=== PATIENT | male | born 1935 | race Caucasian/White ===

== ENCOUNTER 2016-10-01 10:52 | Emergency (ER) | payer MEDICARE, OTHER | END 2016-10-01 12:15 | disposition home or self-care (01) | LOC: D.ER 10:52 | DX: M10.071 Idiopathic gout, right ankle and foot (principal); I10 Essential (primary) hypertension; E78.5 Hyperlipidemia, unspecified ==

== ENCOUNTER → 2018-04-18 12:07 | Outpatient (CLI) | payer MEDICARE, OTHER | END | disposition home or self-care (01) | LOC: D.LABREF 12:07 | DX: R31.9 Hematuria, unspecified (principal) ==

== ENCOUNTER → 2018-04-24 08:48 | Outpatient (CLI) | payer MEDICARE, OTHER ==
[~2018-04-24 08:48] MED LIST: AVAPRO150 MG PO; CRESTOR10 MG PO; METOPROLOL TART25 MG PO
[2018-04-30 06:43] VITALS: BMI 28.5
== END | disposition home or self-care (01) ==
LOC: D.CT 08:48
DX: R31.21 Asymptomatic microscopic hematuria (principal)

== ENCOUNTER 2018-04-30 05:42 | Day surgery (SDC) | payer MEDICARE, OTHER ==
[~2018-04-30] VITALS: Ht 182.9 cm; Wt 95.3 kg
[2018-04-30 06:09] LABS: BASOPHILS 0.5 % (0-2); EOSINOPHILS 3.3 % (0-7); HEMATOCRIT 42.1 % (42.0-54.0); HEMOGLOBIN 14.1 g/dL (13.5-17.5); IMMATURE GRANULOCYTES 0.1 % (0-5); LYMPHOCYTES 32.1 % (15-50); MCH 31.3 pg (26.0-34.0); MCHC 33.5 g/dL (31.0-37.0); MCV 93.3 fL (80.0-100.0); MEAN PLATELET VOLUME 11.2 fL (7.4-10.4); MONOCYTES 10.8 % (2-11); NEUTROPHILS 53.2 % (40-80); PLATELET COUNT 171 10x3/uL (130-400); RBC 4.51 10x6/uL (4.20-6.10); RDW 13.2 % (11.5-14.5); WBC 8.2 10x3/uL (4.8-10.8)
[2018-04-30 06:16] LABS: ANION GAP 14.3 mmol/L (8-16); CALCIUM 9.1 mg/dL (8.5-10.1); CARBON DIOXIDE 27.6 mmol/L (21.0-32.0); CREATININE - SERUM 1.1 mg/dL (0.6-1.3); POTASSIUM - SERUM 3.9 mmol/L (3.5-5.1)
[2018-04-30 06:43] VITALS: BP 138/66; Ht 182.9 cm; Wt 95.3 kg
--- NOTE | 2018-04-30 10:33 | OP ---
PATIENT NAME: MICHAEL DISLA MEDICAL RECORD: [id number] :35 LOCATION:[facility] ADMISSION DATE: SURGEON: SARATH FLOYD MD DATE OF OPERATION: 04/30/2018 SURGEON: Sarath Floyd MD ANESTHESIA: General anesthesia by JANICE Holman CRNA DIAGNOSES: Microscopic hematuria and obstructive benign prostatic hypertrophy. PROCEDURE: Cystoscopy. FINDINGS: Obstructive bilateral lateral lobes of the prostate, vascular prostatic urethra. No significant median lobe. Single ureteral orifices bilaterally, with no bladder tumors seen. Moderately trabeculated bladder. BLOOD LOSS: Minimal to none. CLINICAL HISTORY: This is an 83-year-old male, who was referred for microscopic hematuria noted on an annual physical in March of 2018. His creatinine is normal. His PSA is 2.86 and the urinalysis shows trace blood to be positive. He has CT scan of the abdomen and pelvis, which showed just gallstones. No renal tumors, renal stones or hydronephrosis was seen. An enlarged prostate was also noted on the CT scan. Urine cytology, I do not see a result. He comes today to have cystoscopy performed to complete his hematuria workup. He does not have any drug allergies. He also denies any difficulty voiding. He has nocturia times 1 to 2. He was given Ancef ultrasonographer to the OR. DESCRIPTION OF PROCEDURE: The patient was given induction of general anesthesia. He was then placed in dorsal lithotomy position and prepped and draped. A 17-Frisian cystoscope with 30-degree lens was used for visualization. Findings are as outlined above. The bladder was then emptied through the cystoscope sheath and the scope was removed. The patient was brought to the recovery room after he was awakened and I will see him in followup on a p.r.n. basis. TRANSINT:[id number] Voice Confirmation ID: [id number] DOCUMENT ID: [id number] SARATH FLOYD MD at 1033 CC: [id number] DICTATION DATE: 04/30/18930 TOASTER OPERATOR: 04/30/1849 [facility] [address] [place] [address]
--- NOTE | 2018-04-30 12:33 | NUR ---
1055 DRESSED, AWAKE & ALERT. D/C INFORMATION: MED REC, [facility] D/C INSTRUCTIONS, PRN FOLLOWUP/DR. FLOYD, POST CYSTOSCOPY D/C INSTRUCTIONS REVIEWED WITH PATIENT. PT VOICED UNDERSTANDING. TO PRIVATE CAR PER WHEELCHAIR BY VOLUNTEER. HOME WITH MRS. DISLA. Go WALTERS R.N.
== END 2018-04-30 10:55 | disposition home or self-care (01) ==
LOC: D.OPS 05:42 → D.PAN 08:15 → D.OPS 08:45
PROVIDERS: Anesthesiology
DX: R31.29 Other microscopic hematuria (principal); N40.1 Benign prostatic hyperplasia with lower urinary tract symptoms; N13.8 Other obstructive and reflux uropathy; N32.89 Other specified disorders of bladder; Z01.812 Encounter for preprocedural laboratory examination

== ENCOUNTER 2018-11-20 11:42 | Inpatient (IN) | payer MEDICARE, OTHER ==
[~2018-11-20] VITALS: Ht 182.9 cm; Wt 98.0 kg
[2018-11-20] MEDS ORDERED: LIPITOR20 MG PO (11:47)
[2018-11-20] MEDS ORDERED: CO Q-10200 MG PO (11:48)
[2018-11-20] MEDS ORDERED: OMNICEF300 MG PO (11:49)
[2018-11-20 12:17] LABS: BASOPHILS 0.4 % (0-2); EOSINOPHILS 5.5 % (0-7); HEMATOCRIT 36.8 % (42.0-54.0); HEMOGLOBIN 12.7 g/dL (13.5-17.5); IMMATURE GRANULOCYTES 0.2 % (0-5); LYMPHOCYTES 17.3 % (15-50); MCH 31.5 pg (26.0-34.0); MCHC 34.5 g/dL (31.0-37.0); MCV 91.3 fL (80.0-100.0); MEAN PLATELET VOLUME 10.2 fL (7.4-10.4); MONOCYTES 11.1 % (2-11); NEUTROPHILS 65.5 % (40-80); PLATELET COUNT 169 10x3/uL (130-400); RBC 4.03 10x6/uL (4.20-6.10); RDW 13.7 % (11.5-14.5); WBC 8.1 10x3/uL (4.8-10.8)
[2018-11-20 12:34] LABS: ALBUMIN 3.4 g/dL (3.4-5.0); ANION GAP 13.8 mmol/L (8-16); BILIRUBIN - TOTAL 0.61 mg/dL (0.2-1.3); CARBON DIOXIDE 26.8 mmol/L (21.0-32.0); CREATININE - SERUM 1.1 mg/dL (0.6-1.3); POTASSIUM - SERUM 3.6 mmol/L (3.5-5.1)
[2018-11-20 13:35] VITALS: BP 155/69
--- NOTE | 2018-11-20 13:58 | NUR ---
PT LYING IN BED RESTING NO DISTRESS NOTED. DENIES NEEDS AT THIS TIME.
[2018-11-20 14:47] VITALS: BP 137/85
--- NOTE | 2018-11-20 14:51 | NUR ---
REPORT CALLED TO JAIME HUNT BY SBAR FORMAT
--- NOTE | 2018-11-20 14:55 | NUR ---
TRANSPORTED TO ROOM #2138 VIA W/C, CONDITION STABLE
--- NOTE | 2018-11-20 15:53 | NUR ---
RECEIVED PT FROM ER. PT IS AAO AND UP AD CESILIA. RR EVEN AND UNLABORED ON RA. R.AC PIV IS SALINE LOCKED. QUICKSTART, HISTORY, AND MED REQ COMPLETE. PT DENIES ANY NEEDS. NO S/S OF DISTRESS NOTED.
[2018-11-20 16:15] VITALS: BP 160/66
--- NOTE | 2018-11-20 16:41 | NUR ---
PT CURRENTLY LYING SEMI FOWLERS. CALL LIGHT W/I REACH. AT BEDSIDE. PT DENIES ANY NEEDS. NO S/S OF DISTRESS NOTED. WILL CTM.
[2018-11-20 17:19] VITALS: BP 160/66; Ht 182.9 cm; Wt 98.0 kg
--- NOTE | 2018-11-20 19:00 | NUR ---
PATIENT WALKING AROUND ROOM. PATIENT ASKED ABOUT HOME MEDICATIONS BEING RESTARTED. PATIENT ADVISED ADRIÁN GRAJEDA WOULD BE CALLED TO RESTART HOME MEDICATIONS.
[2018-11-20 20:00] VITALS: BP 145/66
--- NOTE | 2018-11-20 20:57 | NUR ---
PATIENT WALKING AROUND ROOM. PATIENT ASKED FOR BREATHING TREATMENT. PATIENT ADVISED HE DOES NOT HAVE ANY ORDERED AT THIS TIME. ADRIÁN GRAJEDA NOTIFIED. NEW ORDERS RECIEVED. PATIENT NOTIFIED OF NEW ORDERS.
[2018-11-21 00:30] VITALS: BP 151/77
[2018-11-21 04:00] VITALS: BP 139/55
[2018-11-21 06:15] LABS: BASOPHILS 0.4 % (0-2); EOSINOPHILS 5.7 % (0-7); HEMOGLOBIN 11.3 g/dL (13.5-17.5); IMMATURE GRANULOCYTES 0.1 % (0-5); LYMPHOCYTES 23.4 % (15-50); MCH 30.5 pg (26.0-34.0); MCHC 33.2 g/dL (31.0-37.0); MCV 91.9 fL (80.0-100.0); MEAN PLATELET VOLUME 10.5 fL (7.4-10.4); MONOCYTES 14.4 % (2-11); PLATELET COUNT 157 10x3/uL (130-400); RDW 13.8 % (11.5-14.5)
[2018-11-21 06:39] LABS: % SATURATION 20 % (15-55); IRON 49 ug/dl (35-150); TOTAL IRON BIND CAPACITY 245 ug/dl (260-445); UNSAT IRON BIND CAPACITY 196 ug/dl (150-375)
[2018-11-21 06:59] LABS: ANION GAP 11.2 mmol/L (8-16); CALCIUM 8.6 mg/dL (8.5-10.1); CARBON DIOXIDE 29.5 mmol/L (21.0-32.0); CREATININE - SERUM 1.1 mg/dL (0.6-1.3); MAGNESIUM - SERUM 1.7 mg/dL (1.8-2.4); POTASSIUM - SERUM 3.7 mmol/L (3.5-5.1)
--- NOTE | 2018-11-21 07:32 | NUR ---
REPORT RECEIVED. WILL CONTINUE WITH POC.PT CURRENTLY UP AND BRUSHING TEETH. PT IS AAO AND UP AD CESILIA. RR EVEN AND UNLABORED ON RA. R.AC PIV IS SALINE LOCKED. PT DENIES ANY NEEDS. NO S/S OF DISTRESS NOTED. WILL CTM.
[2018-11-21 08:57] VITALS: BP 143/69
[2018-11-21 13:07] VITALS: BP 144/70
[2018-11-21 16:37] VITALS: BP 138/62
[2018-11-21 20:00] VITALS: BP 146/64
--- NOTE | 2018-11-21 20:00 | NUR ---
REPORT RECEIVED, WILL CONTINUE POC. PATIENT IS AAOX4 UP AD CESILIA. HE JUST WALKED BACK INTO THE ROOM. RR EVEN AND UNLABORED, NO S/SX OF DISTRESS NOTED. PATIENT HAS RT FA, SL, PATENT, DRSG C/D/I. PATIENT IS ON ROOM AIR. PATIENT STATED HE HAS TAKEN HIS LOPRESSOR ALREADY FROM HIS HOME MEDS, DOCUMENTED IN EMAR. PATIENT DENIES FURTHER NEEDS AT THIS TIME. CL IN REACH, BED LOCKED AND LOWERED. WILL CTM.
[2018-11-22] VITALS: BP 139/67
[2018-11-22 04:30] VITALS: BP 147/65
[2018-11-22 05:58] LABS: BASOPHILS 0.4 % (0-2); EOSINOPHILS 6.7 % (0-7); HEMATOCRIT 38.8 % (42.0-54.0); IMMATURE GRANULOCYTES 0.4 % (0-5); LYMPHOCYTES 28.6 % (15-50); MCHC 33.5 g/dL (31.0-37.0); MCV 92.6 fL (80.0-100.0); MEAN PLATELET VOLUME 10.6 fL (7.4-10.4); MONOCYTES 12.4 % (2-11); NEUTROPHILS 51.5 % (40-80); RBC 4.19 10x6/uL (4.20-6.10); RDW 13.8 % (11.5-14.5)
[2018-11-22 05:59] LABS: PLATELET COUNT 192 10x3/uL (130-400); WBC 9.3 10x3/uL (4.8-10.8)
[2018-11-22 06:11] LABS: ANION GAP 11.8 mmol/L (8-16); CALCIUM 9.4 mg/dL (8.5-10.1); CARBON DIOXIDE 28.6 mmol/L (21.0-32.0); CREATININE - SERUM 1.2 mg/dL (0.6-1.3); MAGNESIUM - SERUM 1.9 mg/dL (1.8-2.4)
[2018-11-22 06:20] LABS: POTASSIUM - SERUM 4.4 mmol/L (3.5-5.1)
--- NOTE | 2018-11-22 07:04 | MORECARE ---
CASE MANAGEMENT DISCHARGE SUMMARY PATIENT: MICHAEL DISLA UNIT: [id number] ADM DATE: 11/20/18 AGE: 83 : 35 SEX: M ROOM/BED: D.9401 AUTHOR: IVAN,DOC PHYSICIAN: REFERRING PHYSICIAN: DAVID FAM MD DATE OF SERVICE: 11/22/18 Discharge Plan Patient Name: MICHAEL DISLA Facility: [facility]:[place] : 1935 Planned Disposition: Home Anticipated Discharge Date: Discharge Date: Expected LOS: Initial Reviewer: [email or web address] Initial Review Date: 11/22/2018 Generated: 11/22/18 8:03 am Comments DCP- Discharge Planning Updated by [email or web address]: Huy De La O on 11/22/18 6:[address] Patient Name: MICHAEL DISLA Admission Status: ER Accout number: [id number] Admission Date: 11-20-2018 : 1935 Admission Diagnosis: Attending: DAVID FAM Current LOS: 2 Anticipated DC Date: Planned Disposition: Home Primary Insurance: MEDICARE A & B Discharge Planning Comments: CM MET WITH PT IN ROOM TO DISCUSS DISCHARGE PLANNING AND NEEDS. PT REPORTS LIVING AT HOME INDEPENDENTLY WITH HIS SPOUSE. PT HAS NO MEDICAL EQUIPMENT AND NO OUTSIDE SERVICES ASSISTING IN THE HOME. CM DISCUSSED AVAILABILITY OF HOME HEALTH, REHAB SERVICES AND MEDICAL EQUIPMENT. PT DENIES DISCHARGE NEEDS, REPORTS HIS WILL PICK HIM UP FOR DISCHARGE HOME. PT PLANS TO DISCHARGE HOME WITH SPOUSE, HAS NO ANTICIPATED NEEDS. FAMILY TO TRANSPORT HOME AT DISCHARGE. CM TO FOLLOW AND ASSIST IF NEEDED. Currency Machine Operator: Huy De La O DCPIA - Discharge Planning Initial Assessment Updated by [email or web address]: Huy De La O on 11/22/18 7:00 am * Is the patient Alert and Oriented? Yes * How many steps to enter\exit or inside your home? NONE * PCP DR. PARKINSON * Pharmacy [facility] * Preadmission Environment Home with Family * ADLs Independent * Equipment None * Other Equipment NO MEDICAL EQUIPMENT PROVIDER PREFERENCE * List name and contact numbers for known caregivers / representatives who currently or will assist patient after discharge: JEWELS DISLA, SPOUSE, * Verbal permission to speak to the caregivers and representatives has been obtained from the patient. N/A * Community resources currently utilized None * Please name any agencies selected above. NONE * Additional services required to return to the preadmission environment? No * Can the patient safely return to the preadmission environment? Yes * Has this patient been hospitalized within the prior 30 days at any hospital? No Patient Name: MICHAEL DISLA Page [phone] at 0704 All edits/amendments must be made on the electronic document DICTATION DATE: 11/22/18702 SOCIOLOGY RESEARCH ASSISTANT: JAYE 11/22/18702 RPT#: [id number] DC DATE: STATUS: ADM IN [facility] [address] [place] [address] END OF REPORT
--- NOTE | 2018-11-22 07:34 | NUR ---
RECIEVED REPORT. PATIENT IS ALERT AND ORIENTED. HE IS WALKING AROUND THE HOSPITAL RIGHT NOW, AND HAS BEEN SINCE I RECIEVED REPORT. HE DENIES ANY NEEDS AT THIS TIME.
[2018-11-22 09:04] VITALS: BP 134/65
[2018-11-22] MEDS ORDERED: TESSALON PERLE100 MG PO (10:01)
[2018-11-22] MEDS ORDERED: LEVAQUIN750 MG PO (10:01)
[2018-11-22] MEDS ORDERED: MUCINEX600 MG PO (10:01)
[2018-11-22] MEDS ORDERED: PROTONIX40 MG PO (10:01)
[2018-11-22] MEDS ORDERED: ALBUTEROL SULF8.5 GM INH (10:02)
--- NOTE | 2018-11-22 11:36 | NUR ---
PATIENT HAS BEEN DISCHARGED. ALL DISCHARGE TEACHING HAS BEEN DONE AND PAPERS HAVE BEEN SIGNED. PATIENT DENIES ANY OTHER NEEDS AT THIS TIME. IV REMOVED WITH CATHETER INTACT. PATIENT TOLERATED. PATIENT IS LEAVING THE HOSPITAL ON FOOT WITH SEVERAL MEMBERS OF HIS FAMILY AND HOLINESS. HE HAS TAKEN ALL HIS BELONGINGS OUT OF THE ROOM.
--- NOTE | 2018-11-28 10:03 | MORECARE ---
CASE MANAGEMENT DISCHARGE SUMMARY PATIENT: MICHAEL DISLA UNIT: [id number] ADM DATE: 11/20/18 AGE: 83 : 35 SEX: M ROOM/BED: D.5973 AUTHOR: IVAN,DOC PHYSICIAN: REFERRING PHYSICIAN: DAVID FAM MD DATE OF SERVICE: 11/28/18 Discharge Plan Patient Name: MICHAEL DISLA Facility: [facility]:[place] : 1935 Planned Disposition: Home Anticipated Discharge Date: 11/22/18 Discharge Date: 11/22/2018 Expected LOS: 2 Initial Reviewer: [email or web address] Initial Review Date: 11/22/2018 Generated: 11/28/18 11:03 am Comments DCP- Discharge Planning Updated by [email or web address]: Huy De La O on 11/22/18 6:[address] Patient Name: MICHAEL DISLA Admission Status: ER Accout number: [id number] Admission Date: 11-20-2018 : 1935 Admission Diagnosis: Attending: DAVID FAM Current LOS: 2 Anticipated DC Date: Planned Disposition: Home Primary Insurance: MEDICARE A & B Discharge Planning Comments: CM MET WITH PT IN ROOM TO DISCUSS DISCHARGE PLANNING AND NEEDS. PT REPORTS LIVING AT HOME INDEPENDENTLY WITH HIS SPOUSE. PT HAS NO MEDICAL EQUIPMENT AND NO OUTSIDE SERVICES ASSISTING IN THE HOME. CM DISCUSSED AVAILABILITY OF HOME HEALTH, REHAB SERVICES AND MEDICAL EQUIPMENT. PT DENIES DISCHARGE NEEDS, REPORTS HIS WILL PICK HIM UP FOR DISCHARGE HOME. PT PLANS TO DISCHARGE HOME WITH SPOUSE, HAS NO ANTICIPATED NEEDS. FAMILY TO TRANSPORT HOME AT DISCHARGE. CM TO FOLLOW AND ASSIST IF NEEDED. Maintenance Person: Huy De La O DCPIA - Discharge Planning Initial Assessment Updated by [email or web address]: Huy De La O on 11/22/18 7:00 am * Is the patient Alert and Oriented? Yes * How many steps to enter\exit or inside your home? NONE * PCP DR. PARKINSON * Pharmacy [facility] * Preadmission Environment Home with Family * ADLs Independent * Equipment None * Other Equipment NO MEDICAL EQUIPMENT PROVIDER PREFERENCE * List name and contact numbers for known caregivers / representatives who currently or will assist patient after discharge: JEWELS DISLA, SPOUSE, * Verbal permission to speak to the caregivers and representatives has been obtained from the patient. N/A * Community resources currently utilized None * Please name any agencies selected above. NONE * Additional services required to return to the preadmission environment? No * Can the patient safely return to the preadmission environment? Yes * Has this patient been hospitalized within the prior 30 days at any hospital? No Last DP export: 11/22/18 6:04 a Patient Name: MICHAEL DISLA Page [phone] at 1003 All edits/amendments must be made on the electronic document DICTATION DATE: 11/28/18 1002 SHEET SORTER: JAYE 11/28/18 1002 RPT#: [id number] DC DATE:11/22/18 STATUS: DIS IN [facility] [address] [place] [address] END OF REPORT
== END 2018-11-22 11:39 | disposition home or self-care (01) | DRG 195 ==
LOC: D.ER 11:42 → D.M2 14:08
PROVIDERS: Emergency Medicine; ADMIT Internal Medicine Nephrology; ATTEND Internal Medicine Nephrology
DX: J18.1 Lobar pneumonia, unspecified organism (principal); D64.9 Anemia, unspecified; K21.9 Gastro-esophageal reflux disease without esophagitis; I25.10 Atherosclerotic heart disease of native coronary artery without angina pectoris; I10 Essential (primary) hypertension; E83.42 Hypomagnesemia; K25.9 Gastric ulcer, unspecified as acute or chronic, without hemorrhage or perforation

== ENCOUNTER 2018-11-30 23:54 | Inpatient (IN) | payer MEDICARE, OTHER ==
[~2018-11-30] VITALS: Ht 182.9 cm; Wt 98.5 kg
--- NOTE | ~2018-11-30 | HEMODYNAMI ---
PATIENT:MICHAEL DISLA MEDICAL RECORD: [id number] : 35 LOCATION:[address] [facility]# [id number] ADMISSION DATE: 12/01/18 Generatedon:12/04/20188:47 Patient name: MICHAEL DISLA Patient #: [id number] : 1935 Date of study: 12/03/2018 Page: Of Hemodynamic Procedure Report Patient Data Patient Demographics Procedure consent was obtained First Name: MICHAEL Gender: Male Last Name: NIGHAT : 1935 Middle Initial: H Age: 83 year(s) Patient #: [id number] Race: SSN: [id number] Additional ID: [id number] Contact details [address]: [address] [place] [address] DRIVE State: [place] City: [place] Zip code: [address] Past Medical History Allergies: No known allergies Admission Admission Data Admission Date: 12/01/2018 Admission Time: 0:45 Room #: D.2124 Lab Results Lab Result Date: 12/03/2018 Lab Result Time: 0:00 Biochemistry Name Units Result Min Max BUN mg/dl 37 --(----)-* 7 18 Creatinine mg/dl 1.5 --(----)-* 0.6 1.3 CBC Name Units Result Min Max Hematocrit % 37 *-(----)-- 42 54 Hemoglobin g/dl 12.7 -*(----)-- 13.5 17.5 Procedure Procedure Types Cath Procedure Diagnostic Procedure LHC LHC w/Coronaries FFR/IVUS Intra-Coronary IVUS Initial Sedation Charges Moderate Sedation up to 15 minutes PCI Procedure Coronary Stent Coronary Stent Initial x2 Procedure Description Procedure Date Procedure Date: 12/03/2018 Procedure Start Time: 9:42 Procedure End Time: 10:08 Procedure Staff Name Function Murray Hernandez RT Scrub Donal Esparza RN Nurse Edwin Lopez MD Performing Physician Lizzeth Hair RT Monitor Arely Monreal RT Scrub Indication Shortness of breath CAD Procedure Data Cath Procedure Fluoroscopy Diagnostic fluoroscopy Total fluoroscopy Time: 5.9 time: 5.9 min min Diagnostic fluoroscopy Total fluoroscopy dose: dose: 1316 mGy 1316 mGy Contrast Material Contrast Material Type Amount (ml) Isovue 300 136 Entry Location Entry Primary Successful Side Size Upsize Upsize Entry Closure Harvey ccessful Closure Location (Fr) 1 (Fr) 2 (Fr) Remarks Device Remarks Radial Right 6 Fr Mechanical artery Short Compression Estimated blood loss: 10 ml Diagnostic catheters Device Type Used For End Catheter Placement DIAGNOSTIC Dauphin 110cm 5 Procedure Fr catheter ([id number]) Procedure Complications No complications Procedure Medications Medication Administration Route Dosage Oxygen etCO2 Nasal cannula 2 l/min Lidocaine 2% added to field 20 Heparin Flush Bag added to field 2 bags (1000units/500ml NS) 0.9% NaCl I.V. 100 ml/hr Radial Cocktail I.A. 1 syringe (Verapamil 2mg/Nitro 400mcg/Heparin 1500units) Versed I.V. 1 mg Fentanyl I.V. 50 mcg Versed I.V. 1 mg Fentanyl I.V. 50 mcg Heparin Bolus I.V. 4000 units Integrilin (Bolus I.V. 9 ml 2mg/ml) Plavix P.O. 600 mg Hemodynamics Rest HGB: 12.7 (g/dl) Heart Rate: 82 (bpm) Snapshots Pre Cath Intra NCS Post Cath Vital Signs Time Heart Resp SPO2 etCO2 NIBP (mmHg) Rhythm Pain Sedation Rate (ipm) (%) (mmHg) Status Level (bpm) 9:30:01 80 14 98 0 141/77(115) NSR 0 (11) 10(A) , No pain 9:34:29 84 14 98 32.8 148/78(110) NSR 0 (11) 10(A) , No pain 9:38:57 85 13 94 29.1 136/86(119) NSR 0 (11) 10(A) , No pain 9:43:22 84 14 97 10.4 146/84(112) NSR 0 (11) 9(A) , No pain 9:47:34 93 13 94 0 109/85(101) NSR 0 (11) 9(A) , No pain 9:52:47 88 11 93 0 142/77(97) NSR 0 (11) 9(A) , No pain 9:57:13 89 12 91 30.6 135/84(110) NSR 0 (11) 9(A) , No pain 10:01:35 90 14 95 0 150/84(113) NSR 0 (11) 10(A) , No pain 10:06:04 91 12 98 11.9 146/84(118) NSR 0 (11) 10(A) , No pain Medications Time Medication Route Dose Verified Delivered Reason Not es Effectiveness by by 9:27:21 Oxygen etCO2 2 l/min Edwinmerly Mansfield used for Nasal John Esparza RN procedure cannula 9:27:28 Lidocaine 2% added 20ml Edwinmerly Pineda for local to vial John Lopez MD anesthetic field 9:27:34 Heparin Flush added 2 bags Edwin Pineda used for Bag to John Lopez MD procedure (1000units/500ml field NS) 9:27:43 0.9% NaCl I.V. 100 Edwin Mansfield Per physician ml/hr John Esparza RN 9:41:02 Fentanyl I.V. 50 mcg Edwin Mansfield for sedation John Esparza RN 9:41:57 Versed I.V. 1 mg Edwin Mansfield for sedation John Esparza RN 9:46:25 Radial Cocktail I.A. 1 Edwin Pineda for (Verapamil syringe John Lopez MD vasodilation 2mg/Nitro 400mcg/Hepari 9:46:34 Versed I.V. 1 mg Edwin Mansfield for sedation John Esparza RN 9:46:38 Fentanyl I.V. 50 mcg Edwin Mansfield for sedation John Esparza RN 9:55:28 Heparin Bolus I.V. 4000 Edwin Mansfield for lorenza ified units John Esparza RN anticoagulation with dr lopez 9:57:57 Integrilin I.V. 9 ml Edwin Mansfield for was vladislav 1 (Bolus 2mg/ml) John Esparza RN antiplatelet ml of therapy vial 10:05:17 Plavix P.O. 600 mg Edwin Mansfield for John Esparza RN antiplatelet therapy Procedure Log Time Note 8:54:24 Informed consent obtained and on chart 9:01:50 Indication : Shortness of breath 9:01:54 Indication : CAD 9:02:05 Diagnostic Cath Status : Elective 9:03:48 Lab Result : Hemoglobin 12.7 g/dl 9::48 Lab Result : Hematocrit 37 % 9::48 Lab Result : BUN 37 mg/dl 9::48 Lab Result : Creatinine 1.5 mg/dl 9:06:24 ACC Patient presents with Unstable Angina CCS Anginal Class 4--Inability to carry out any physical activity w/o angina. Angina may occur at rest. 9:08:34 ACCPatient has been prescribed/administered the following anti-anginal medication within the last 2 weeks: None 9::38 Procedure Status Urgent Heart Cath (IP). 9::40 Donal Esparza RN sent for patient. Start room use. 9::41 Time tracking: Regular hours (M-F 7:00 - 5:00) 9::45 Plan of Care:Hemodynamics will remain stable., Cardiac rhythm will remain stable., Comfort level will be maintained., Respiratory function will remain adequate., Patient/ family verbilizes understanding of procedure., Procedure tolerated without complication., Recovers from procedure without complications.. 9:27:09 Vital chart was started 9:27:21 Oxygen 2 l/min etCO2 Nasal cannula was administered by Donal Esparza RN; used for procedure; 9::28 Lidocaine 2% 20ml vial added to field was administered by Edwin Lopez MD; for local anesthetic; 9::34 Heparin Flush Bag (1000units/500ml NS) 2 bags added to field was administered by Edwin Lopez MD; used for procedure; 9::43 0.9% NaCl 100 ml/hr I.V. was administered by Donal Esparza RN; Per physician; 9::35 Baseline sample Acquired. 9::39 Rhythm: sinus rhythm 9::40 Pre-procedure instructions explained to patient. 9::40 Full Disclosure recording started 9::41 Pre-op teaching completed and patient verbalized understanding. 9::43 Family in patients room. 9:31:54 Patient allergic to No known allergies 9:32:56 Is patient on blood thinner?No 9:32:58 Patient diabetic? No. 9:33:01 Previous problem with sedation/anesthesia? No ? 9:33:03 Snore? Yes 9:33:04 Sleep apnea? No 9:33:05 Deviated septum? No 9:33:06 Opens mouth fully? Yes 9:33:07 Sticks out tongue? Yes 9:33:12 Airway obstruction? Yes PNEUMONIA 9:33:15 Dentures? Yes IN 9:33:18 Modified Osman's test Ulnar < 7 seconds 9:33:20 Patient pain scale 0/10 ?. 9:33:24 IV patent on arrival in right antecubital with 0.9% NaCl at [facility]. 9:33:26 Lab results completed and on chart. 9:33:29 Alarms reviewed by R. N. 9:33:29 Right Radial & Right Groin area was prepped with chlora-prep and draped in sterile fashion 9:33:30 Sharps counted by scrub and verified by R.N. 9:33:36 Use device set Radial Dx or PCI 9:33:37 ACIST Syringe (50750) opened to sterile field. 9:33:43 ACIST Hand Control (76594) opened to sterile field. 9:33:43 Bag Decanter (2002S) opened to sterile field. 9:33:44 Tegaderm 4 x 4 (1626W) opened to sterile field. 9:33:44 ACIST Manifold (15568) opened to sterile field. 9:33:48 MBrace Wrist Support ([id number]) opened to sterile field. 9:33:50 EMERALD Guide Wire (179-548) opened to sterile field. 9:33:51 SHEATH 6FR RAIN (5372257) opened to sterile field. 9:33:56 Medline Cath Pack ([id number]) opened to sterile field. 9:34:08 H&P Date Dictated: 12/03/2018 Within 30 days and on chart.. 9:34:14 Patient NPO since Midnight. 9:39:27 --------ALL STOP TIME OUT------ 9:39:28 Final Timeout: patient, procedure, and site verified with staff and physician. All members of the team are in agreement. 9:39:31 Right Radial & Right Groin site verified by team. 9:39:36 Fire Safety Assessment: A--An alcohol-based skin anteseptic being used preoperatively., C--Open oxygen or nitrous oxide is being used., D--An ESU, laser, or fiber-optic light is being used. 9:39:39 Physical assessment completed. ASA score P 2 - A patient with mild systemic disease as per Edwin Lopez MD. 9:39:43 3a) 45-59 Moderately reduced kidney function. 9:40:15 Maximum allowable contrast dose (3.7 X eGFR X 0.75)123 ml. 9:40:18 Sedation plan: IV Moderate Sedation Medication:Versed, Fentanyl 9:41:02 Fentanyl 50 mcg I.V. was administered by Donal Esparza RN; for sedation; 9:41:57 Versed 1 mg I.V. was administered by Donal Esparza RN; for sedation; 9:42:26 Procedure started. 9:42:31 Local anesthetic to right radial artery with Lidocaine 2% by Edwin Lopez MD.INITIAL ACCESS ONLY 9:45:58 A 6 Fr Short sheath was inserted into the Right Radial artery 9:46:23 A DIAGNOSTIC Dauphin 110cm 5 Fr catheter ([id number]) was advanced over the wire and used for Procedure. 9:46:25 Radial Cocktail (Verapamil 2mg/Nitro 400mcg/Heparin 1500units) 1 syringe I.A. was administered by Edwin Lopez MD; for vasodilation; 9:46:34 Versed 1 mg I.V. was administered by Donal Esparza RN; for sedation; 9:46:38 Fentanyl 50 mcg I.V. was administered by Donal Esparza RN; for sedation; 9:47:05 LV gram done using HUANG 9:47:21 Injector settings: Ml/sec: 5, Volume: 15, 9:47:50 EF : 55 % 9:49:14 RCA angiography performed. 9:49:16 Catheter exchanged over wire. 9:49:29 UNABLE TO ENGAGE LCA 9:49:49 GUIDE 6FR XBLAD 3.5 catheter ([id number]) opened to sterile field. 9:52:21 6 Fr XBLAD 3,5 guide catheter was inserted over the wire 9:52:25 LCA angiography performed. 9:52:30 Spangler Maupin Eagleye IVUS Catheter (32111Z) opened to sterile field. 9:52:34 CHOICE PT Extra Support 182cm wire ([id number]) opened to sterile field. 9:52:37 INFLATOR Merit BasixCompak (NV2132) opened to sterile field. 9:53:12 CHOICE ES 182 wire advanced. 9:53:15 Wire advanced across lesion. 9:55:28 Heparin Bolus 4000 units I.V. was administered by Donal Esparza RN; for anticoagulation; verified with dr lopez 9:56:06 IVUS catheter advanced over wire. 9:56:07 IVUS pass to LAD lesion performed. 9:56:10 IVUS pass to LMCA lesion performed. 9:56:15 IVUS catheter removed over wire. 9:56:16 IVUS measurement 81 %. 9:57:57 Integrilin (Bolus 2mg/ml) 9 ml I.V. was administered by Donal Esparza RN; for antiplatelet therapy; wasted 1 ml of vial 9:58:45 Place stent Inflation Number: 1 A COBRA RX 4.0 X 15 Stent was prepped and advanced across the Prox LAD 81. The stent was deployed at 15 JOE for 0:00 (min:sec) 0. 10:01:02 Stent catheter was removed intact over wire. 10:01:08 Place stent Inflation Number: 1 A COBRA RX 4.0 X 08 Stent was prepped and advanced across the LMCA 81. The stent was deployed at 19 JOE for 0:10 (min:sec) 0. 10:01:11 ACT drawn and resulted at 274 seconds. (normal therapeutic range 180-240 seconds). 10:01:20 Inflation number: 2 The stent balloon was then re-inflated across the LMCA 0 to 5 JOE for 0:10 (min:sec) . 10:02:17 Stent catheter was removed intact over wire. 10:02:18 Wire removed. 10:02:18 Guide catheter removed. 10:03:32 Procedure ended.(Physican Out) 10:04:15 ZEPHYR REGULAR TR BAND (144623) opened to sterile field. 10:04:23 Sheath removed intact; hemostasis achieved with Mechanical Compression to the Right Radial artery. 10:04:27 Fluoroscopy time 05.90 minutes. 10:04:32 Flurop Dose total: 1316 10:04:32 Fluoroscopy dose: 1316 mGy 10:04:39 Dose Area Product 99332 mGy/cm. 10:04:42 Contrast amount:Isovue 300 136ml. 10:04:45 Maximum allowable dose exceeded? No. 10:04:46 Sharps counted by scrub and verified by R.N. 10:05:17 Plavix 600 mg P.O. was administered by Donal Esparza RN; for antiplatelet therapy; 10:05:32 [place] band inflated with 10cc of air. 10:06:24 Post-procedure physical assessment completed. ASA score P 2 - A patient with mild systemic disease as per Edwin Lopez MD. 10:06:28 Post procedure rhythm: sinus rhythm 10:06:30 Estimated blood loss: 10 ml 10:06:32 Patient needs reinforcement of post procedure teaching. 10:06:32 Post procedure instruction explained to patient.Patient verbalizes understanding. 10:07:40 Procedure type changed to Cath procedure, Diagnostic procedure, LHC, LHC w/Coronaries, FFR/IVUS, Intra-Coronary IVUS Initial, Sedation Charges, Moderate Sedation up to 15 minutes, PCI procedure, Coronary Stent, Coronary Stent Initial x2 10:08:04 Procedure and supply charges have been captured, reviewed, submitted and are correct. 10:08:25 Procedure Complication : No complications 10:08:27 Vital chart was stopped 10:08:28 See physician's report for complete and final results. 10:08:30 Report given to PCU. 10:08:33 Patient transfered to PCU with Bed. 10:08:35 Procedure ended. 10:08:35 Full Disclosure recording stopped 10:08:39 End room use (Document Last) Intervention Summary Intervention Notes Time ActionType Lesion and Equipment Action# Pressure Duration Attributes Used 9:58:45 Place stent Prox LAD COBRA RX 1 15 00:00 4.0 X 15 Stent 10:01:08 Place stent LMCA COBRA RX 1 19 00:10 4.0 X 08 Stent 10:01:20 Reinflate LMCA COBRA RX 2 5 00:10 stent 4.0 X 08 balloon Stent Device Usage Item Name Manufacture Quantity Catalog Number Hospital Part Current Minimal Lot# / Charge Number Stock Stock Serial# Code ACIST Syringe Acist 1 95736 226435 272957 915390 20 (26132) Medical Systems Inc Bag Decanter Microtek 1 113182 66062 099427 5 () Medical Inc. ACIST Hand Acist 1 10083 060452 999425 649420 5 Control Medical (75654) Systems Inc ACIST Manifold Acist 1 88971 808606 368414 181804 5 (77444) Medical Systems Inc Tegaderm 4 x 4 3M 1 1626W 398583 852012 840718 5 (1626W) MBrace Wrist Advanced 1 140-0250-00 519616 65368 912588 5 Support Vascular (317961961) Dynamics EMERALD Guide Cardinal 1 502-455 123405 703238 888377 5 Wire (502455) Health SHEATH 6FR Cardinal 1 9935842 751466 7597956 771885 5 RAIN (5694608) Health Medline Cath Medline 1 [id number] 490053 00267 315383 5 Pack ([id number]) DIAGNOSTIC Terumo 1 40-4303 104096 768332 771443 5 Dauphin 110cm 5 Fr catheter (571701) GUIDE 6FR Cardinal 1 78375269 769118 652980 629702 10 XBLAD 3.5 Health catheter (54945467) INFLATOR Merit Merit 1 VF0493 568007 893631 042104 15 LOYAL3[facility] Institute[facility] (AZ6465) CHOICE PT Aurelia 1 [id number] 466863 644179 781561 5 Extra Support Scientific 182cm wire ([id number]) Spangler Spangler 1 32051R 004830 082660 394301 8 Maupin Eagleye IVUS Catheter (77897J) COBRA RX 4.0 X Celonova 1 016-01-73202 482219 [id number] 831885 5 [id number] 15 stent Biosciences (375-60-18308) COBRA RX 4.0 X Celonova 1 432438 790958691 27046 1 [id number] 08 stent Biosciences () ZEPHYR REGULAR Cardinal 1 563669 751174 6779800 324615 5 TR BAND [place] [employer] (144026) Signature Audit [place] Stage Time Signature Unsigned Intra-Procedure 12/03/2018 Lizzeth Hernandez RT(R) 10:11:23 AM RT(R) 12/04/2018 8:45:59 AM Intra-Procedure 12/04/2018 Murray Hernandez 8:47:23 AM RT(R) Signatures Nurse : Donal Esparza RN Signature : Date : Time : Performing Physician : Signature : Edwin Tauth MD Date : Time : Monitor : Lizzeth Hair Signature : RT Date : Time : [address] [place] [address]
[~2018-11-30 23:54] MED LIST changes: +ALBUTEROL SULF8.5 GM INH; +CO Q-10200 MG PO; +LEVAQUIN750 MG PO; +LIPITOR20 MG PO; +MUCINEX600 MG PO; +OMNICEF300 MG PO; +PROTONIX40 MG PO; +TESSALON PERLE100 MG PO
[2018-12-01] VITALS (7 sets, daily range): BP systolic 142–164; BP diastolic 67–85; BMI 28.7
[2018-12-01 00:24] LABS: BASOPHILS 0.6 % (0-2); HEMATOCRIT 36.7 % (42.0-54.0); HEMOGLOBIN 12.4 g/dL (13.5-17.5); IMMATURE GRANULOCYTES 0.3 % (0-5); LYMPHOCYTES 21.8 % (15-50); MCH 31.4 pg (26.0-34.0); MCHC 33.8 g/dL (31.0-37.0); MCV 92.9 fL (80.0-100.0); MEAN PLATELET VOLUME 9.9 fL (7.4-10.4); MONOCYTES 8.4 % (2-11); NEUTROPHILS 60.9 % (40-80); RBC 3.95 10x6/uL (4.20-6.10); RDW 14.1 % (11.5-14.5); WBC 10.7 10x3/uL (4.8-10.8)
--- NOTE | 2018-12-01 00:24 | NUR ---
RT AT PT BEDSIDE.
[2018-12-01 00:27] LABS: PLATELET COUNT 244 10x3/uL (130-400)
--- NOTE | 2018-12-01 00:36 | NUR ---
PT GIVEN NITRO AT DOCTOR'S REQUEST. STATES NOT HAVING CHEST PAINS. STATES "I JUST DON'T FEEL LIKE I CAN TAKE A DEEP BREATH."
[2018-12-01 00:40] LABS: ALBUMIN 3.6 g/dL (3.4-5.0); ALKALINE PHOSPHATASE 64 U/L (46-116); ALT (SGPT) 42 U/L (10-68); BILIRUBIN - TOTAL 0.48 mg/dL (0.2-1.3); CALC OSMOLALITY 278 mosm/kg (275-300); CALCIUM 9.2 mg/dL (8.5-10.1); CARBON DIOXIDE 28.3 mmol/L (21.0-32.0); CHLORIDE - SERUM 103 mmol/L (98-107); GLUCOSE 106 mg/dL (74-106); POTASSIUM - SERUM 3.6 mmol/L (3.5-5.1); PROTEIN - SERUM 7.2 g/dL (6.4-8.2); SODIUM 139 mmol/L (136-145); UREA NITROGEN 14 mg/dL (7-18); eGFR NON AFRICAN AMERICAN 76 mL/min (90-120)
--- NOTE | 2018-12-01 00:43 | NUR ---
PT STATES NO CHANGE AFTER NITRO. COUGHING A DRY HACKY COUGH. OXYGEN AT 2L APPLIED VIA N/C.
[2018-12-01 00:47] LABS: PRO BNP 424 pg/mL (0-450); TROPONIN-I < 0.017 ng/mL (0.000-0.060)
--- NOTE | 2018-12-01 00:53 | NUR ---
URINAL TO PATIENT.
--- NOTE | 2018-12-01 01:21 | NUR ---
PT ARRIVED VIA STRETCHER FROM ER WITH AT SIDE. NO DISTRESS NOTED.
[2018-12-01] MEDS ORDERED: LIPITOR20 MG PO (01:36)
[2018-12-01] MEDS ORDERED: CO Q-10200 MG PO (01:36)
--- NOTE | 2018-12-01 02:07 | NUR ---
ADMISSION ASSESSMENT, HISTORY AND HOME MED LIST COMPLETED. SR PER CM HR 97. O2 2LNC. VSS. IV TO RAC SL. LUNGS DIMINISHED IN BASES BILAT. ALERT AND ORIENTED TO PERSON, PLACE AND TIME. ROBBINS. PT STATES FEELS MUCH IMPROVED FROM WHEN HE WAS AT HOME. SR UP X1, CALL LIGHT WITHIN REACH.
--- NOTE | 2018-12-01 02:58 | NUR ---
PT RESTING WITH EYES CLOSED. RESP EVEN AND REGULAR. SR UP X1, CALL LIGHT WITHIN REACH.
--- NOTE | 2018-12-01 05:07 | NUR ---
PT RESTING WITH EYES CLOSED. RESP EVEN AND REGULAR. SR UP X2, CALL LIGHT WITHIN REACH.
--- NOTE | 2018-12-01 07:38 | NUR ---
AWAKE AND ALERT. TELEMERTY SHOWS SR, C/0 COUGH AND STATES THE PEARLS DONT WORK. UP AB CESILIA. 02 AT 2/L MINPER NC.RIGHT AC SL
[2018-12-01 11:27] LABS: CKMB 6.2 U/L (0.0-3.6); CREATINE KINASE 323 UL (21-232); MAGNESIUM - SERUM 1.9 mg/dL (1.8-2.4)
[2018-12-01 11:28] LABS: TROPONIN-I < 0.017 ng/mL (0.000-0.060)
[2018-12-01 16:31] LABS: CKMB 6.5 U/L (0.0-3.6); CREATINE KINASE 365 UL (21-232)
[2018-12-01 16:35] LABS: TROPONIN-I < 0.017 ng/mL (0.000-0.060)
--- NOTE | 2018-12-01 20:13 | NUR ---
INITIAL ROUNDS COMPLETED AT 1910 HRS. PT DENIED ANY DISCOMFORT. ASSESSMENT COMPLETED AT 1940 HRS. VSS. SR PER CM HR 91. ALERT AND ORIENTED TO PERSON, PLACE. ROBBINS. O2 2LNC. LUNGS WITH INSPIRATORY WHEEZES TO UPPER R LOBE. DIMINISHED IN BASES BILAT. IV TO RAC SL. PALPABLE PERIPHERAL PULSES. DENIES ANY DISCOMFORT. SR UP X2, CALL LIGHT WITHIN REACH.
--- NOTE | 2018-12-01 21:12 | NUR ---
PT RESTING WITH EYES CLOSED. RESP EVEN AND REGUAR. SR UP X2, CALL LIGHT WITHIN REACH.
[2018-12-01 22:54] LABS: CKMB 4.5 U/L (0.0-3.6); CREATINE KINASE 259 UL (21-232); TROPONIN-I < 0.017 ng/mL (0.000-0.060)
[2018-12-02] VITALS: BP 157/87
--- NOTE | 2018-12-02 01:00 | NUR ---
EKG DONE. PT DENIES ANY DISCOMFORT. CALL LIGHT WITHIN REACH.
--- NOTE | 2018-12-02 02:45 | NUR ---
PT RESTING WITH EYES CLOSED. RESP EVEN AND REGULAR. SR UP X2, CALL LIGHT WITHIN REACH.
[2018-12-02 04:00] VITALS: BP 162/85
--- NOTE | 2018-12-02 04:57 | NUR ---
PT RESTING WITH EYES CLOSED. RESP EVEN AND REGULAR. SR UP X2, CALL LIGHT WITHIN REACH.
[2018-12-02 06:46] LABS: BASOPHILS 0.1 % (0-2); EOSINOPHILS 0.1 % (0-7); HEMATOCRIT 36.8 % (42.0-54.0); HEMOGLOBIN 12.5 g/dL (13.5-17.5); IMMATURE GRANULOCYTES 0.2 % (0-5); LYMPHOCYTES 9.8 % (15-50); MCH 31.1 pg (26.0-34.0); MCV 91.5 fL (80.0-100.0); MEAN PLATELET VOLUME 10.6 fL (7.4-10.4); MONOCYTES 2.5 % (2-11); NEUTROPHILS 87.3 % (40-80); PLATELET COUNT 241 10x3/uL (130-400); RBC 4.02 10x6/uL (4.20-6.10); RDW 13.8 % (11.5-14.5); WBC 12.3 10x3/uL (4.8-10.8)
[2018-12-02 07:00] LABS: ANION GAP 10.7 mmol/L (8-16); CALCIUM 9.4 mg/dL (8.5-10.1); CARBON DIOXIDE 30.2 mmol/L (21.0-32.0); CREATININE - SERUM 1.1 mg/dL (0.6-1.3); POTASSIUM - SERUM 3.9 mmol/L (3.5-5.1)
--- NOTE | 2018-12-02 07:35 | NUR ---
REPORT RECIEVED. PT SITTING IN CHAIR AT BEDSIDE. RR EVEN AND UNLABORED. NO DISTRESS NOTED. PT IS CURRENTLY WEARING 2L NC. HE HAS A R AC THAT IS SL. HE IS AWARE OF HIS NPO STATUS AWAITING A CARDIAC STRESS TEST. BED LOCKED AND IN LOWEST POSITION. CALL LIGHT WITHIN REACH. WILL CTM.
[2018-12-02 08:17] VITALS: BP 170/95
[2018-12-02 12:10] VITALS: BP 155/86
[2018-12-02 13:21] VITALS: Ht 182.9 cm; Wt 98.5 kg
[2018-12-02 14:07] LABS: % SATURATION 26 % (15-55); IRON 75 ug/dl (35-150); TOTAL IRON BIND CAPACITY 284 ug/dl (260-445); UNSAT IRON BIND CAPACITY 209 ug/dl (150-375)
[2018-12-02 15:31] VITALS: BP 159/77
--- NOTE | 2018-12-02 15:44 | NUR ---
I have reviewed this patient and I concur with the Shift Assessment completed by the Licensed Practical Nurse today this shift.
--- NOTE | 2018-12-02 19:10 | NUR ---
PT IN BED LOW AND LOCKED WITH CALL LIGHT IN PLACE RES TX AT THE MOMENT LCTA SKIN WARM AND DRY
[2018-12-02 20:00] VITALS: BP 132/66
--- NOTE | 2018-12-02 20:16 | NUR ---
PT IS UP AND AMBLITORY THROUGH HALLWAY AND TOLERATING WELL
[2018-12-03 04:00] VITALS: BP 146/70
[2018-12-03 05:34] LABS: HEMOGLOBIN 12.7 g/dL (13.5-17.5); MCH 31.3 pg (26.0-34.0); MCHC 34.3 g/dL (31.0-37.0); MCV 91.1 fL (80.0-100.0); MEAN PLATELET VOLUME 10.7 fL (7.4-10.4); PLATELET COUNT 282 10x3/uL (130-400); RBC 4.06 10x6/uL (4.20-6.10); WBC 21.2 10x3/uL (4.8-10.8)
[2018-12-03 05:39] LABS: ANION GAP 13.8 mmol/L (8-16); CALCIUM 9.1 mg/dL (8.5-10.1); CARBON DIOXIDE 28.9 mmol/L (21.0-32.0); POTASSIUM - SERUM 3.7 mmol/L (3.5-5.1)
[2018-12-03 05:48] LABS: CREATININE - SERUM 1.5 mg/dL (0.6-1.3)
--- NOTE | 2018-12-03 07:25 | NUR ---
ASSESSMENT DONE. DENIES NEEDS
--- NOTE | 2018-12-03 09:30 | NUR ---
TO COLD TYPE ARTIST PER BED
[2018-12-03 09:42] LABS: ANISOCYTOSIS OCC; LYMPHOCYTES 12 % (15-50); MONOCYTES 8 % (2-11); NEUTROPHILS 80 % (40-80); PLATELET ESTIMATE NORMAL
--- NOTE | 2018-12-03 10:30 | NUR ---
RETURN FROM CYTOLOGY TECHNOLOGIST PER BED. TR-BAND TO RT WRIST.
--- NOTE | 2018-12-03 11:09 | CN ---
PATIENT NAME:MICHAEL PEREZ MEDICAL RECORD: [id number] : 35 LOCATION:D. D.2124 ADMIT DATE: 12/01/18 ACCOUNT: [id number] CONSULTING PHYSICIAN: LORE MORLEY MD REFERRING PHYSICIAN: LINDA RAJAN DO DATE OF CONSULTATION: 12/01/2018 DIAGNOSES: 1. Shortness of breath, dyspnea on exertion. 2. Coronary artery disease. 3. Previous percutaneous transluminal coronary angioplasty stent. 4. Hypertension. 5. Hyperlipidemia. 6. Recent pneumonia. HISTORY OF PRESENT ILLNESS: Mr. Perez presents with severe shortness of breath, dyspnea on exertion, orthopnea and PND. He recently was treated with pneumonia, was discharged; however, his shortness of breath has actually worsened. He has a history of coronary artery disease, PTCA stent in 2006. His EKG is with no acute ST-T abnormalities. PHYSICAL EXAMINATION: CONSTITUTIONAL/GENERAL APPEARANCE: Well nourished, well developed, appears stated age. EYES: Lids and conjunctivae noninjected. No discharge. No pallor. ENT: Lips within normal limit. No cyanosis. No pallor. NECK: Carotid arteries, bilateral normal upstroke. No bruits. No thrills. No jugular venous pressure or distention. CERVICAL LYMPH NODES: Nontender. Nonenlarged. THYROID: Not enlarged. No nodules. CARDIOVASCULAR: Precordial exam, nondisplaced. No heaves or pericardial thrills. Rate and rhythm, regular. Heart sounds, normal S1, normal S2. No S3, no gallop, no rub. Systolic murmur, not heard. Diastolic murmur, not heard. RESPIRATORY: Respiratory effort, unlabored. Normal curvature. No thoracic deformity. No chest wall tenderness. Percussion, resonant. Auscultation, clear. No wheezes, no rales, no rhonchi. ABDOMEN: Soft, nondistended, nontender. No abdominal pain, no vomiting and normal appetite. MUSCULOSKELETAL: No joint tenderness, normal gait, normal tone. SKIN: Warm and dry. OVERALL IMPRESSION: Shortness of breath, dyspnea on exertion, and orthopnea. This very well may be partially cardiac. We will get an echocardiogram today. Risk stratify with stress testing, Cardiolite imaging tomorrow. TRANSINT:[id number] Voice Confirmation ID: [id number] DOCUMENT ID: [id number] CONSULT REPORT [id number] MICHAEL PEREZ, LORE WEST at 1109 CC: [id number] DICTATION DATE: 12/01/18 1104 OFFICE SUPPORT: 12/01/18 1129 ADM IN [place] [id number] [place] [address]
--- NOTE | 2018-12-03 11:10 | ST ---
PATIENT:MICHAEL DISLA MEDICAL RECORD: [id number] SEX: M [facility] ORDER #: ADMISSION DATE: 12/01/18 AGE OF PATIENT: 83 REFERRING PHYSICIAN: INTERPRETING PHYSICIAN: LORE MORLEY MD DATE OF SERVICE: 12/02/2018 PROCEDURE: Nuclear stress test. INDICATION: Angina. He was exercised on standard Lexiscan protocol with 28 mCi of sestamibi injected at peak stress, 9 mCi used previously for rest images. FINDINGS: Gated SPECT reveals a preserved ejection fraction at 61%. However, there is decreased thickening and brightening throughout the inferior segments. SPECT imaging: Cardiolite was used as myocardial perfusion agent. There is a fixed perfusion defect inferiorly compatible with previous inferior myocardial infarction; however, there is reversibility laterally. This includes the basal, mid, apical, lateral segments. The degree of reversibility is moderate. The amount of myocardium involved between the 2 defects is very large. OVERALL IMPRESSION: This is an intermediate to high risk nuclear stress test. Fixed perfusion defect inferiorly, reversible ischemia laterally. In this patient with no past history of coronary artery disease, it does suggest the presence of hemodynamically significant coronary artery disease and possibly multivessel disease. TRANSINT:[id number] Voice Confirmation ID: [id number] DOCUMENT ID: [id number] LORE MORLEY MD at 1110 CC: [id number] DICTATION DATE: 12/02/181929 PENSION ADMINISTRATOR: 12/03/18 0142 ADM IN [facility] [address] [place] [address]
--- NOTE | 2018-12-03 11:10 | EC ---
PATIENT:MICHAEL DISLA DATE OF SERVICE: 12/01/18 SEX: M MEDICAL RECORD: [id number] DATE OF : 35 LOCATION:D. D.212 AGE OF PATIENT: 83 ADMISSION DATE: 12/01/18 REFERRING PHYSICIAN: INTERPRETING PHYSICIAN: LORE LOPEZ MD ECHOCARDIOGRAM REPORT ECHO CHARGES 4 ECHO COMPLETE Date: 12/01/18 CLINICAL DIAGNOSIS: CHF/SOB ECHOCARDIOGRAPHIC MEASUREMENTS (adult normal given) AC root (d.<3.7cm) 3.1 cm LV Septum d (<1.2 cm> 1.2 cm Valve Excursion 2.1 cm LV Septum (systole) 1.8 cm Left Atria (s.<4.0cm> 4.6 cm LVPW d(<1.2cm) 1.1 cm RV (d.<2.3cm) 2.0 cm LVPW (sytole) 1.5 cm LV diastole(<5.6CM) 5.6 cm MV E-F(>70mm/sec) cm LV systole 3.4 cm LVOT Diameter 1.9 cm MV exc.(>10mm) cm Est.ejection fraction (50-75%) % DOPPLER: LVIT cm/sec A 106 cm/sec E 71.0 cm/sec LA cm/sec RVSP 41.0 mmHg LVOT 97.0 cm/sec AOP1/2T m/s Asc. Ao 130 cm/sec RVOT 66.0 cm/sec RA cm/sec PA 90.0 cm/sec AV Gradient Peak 6.8 mmHg AV Mean 3.6 mmHg AV Area 1.9 cm MV Gradient Peak 6.5 mmHg MV Mean 2.3 mmHg MV Area cm COMMENTS: Acid Concentrator: Maxime HERNANDEZOE Security Compliance Specialist: 1 Dr. Lopez TAPE# PACS Pericardial Effusion N DATE OF SERVICE: 12/01/2018 PROCEDURE: Echocardiogram. FINDINGS: 1. Left ventricular chamber size is mildly dilated. Left ventricular systolic function is lower limits of normal to mildly reduced at 45%. 2. Left atrium is enlarged at 4.6 cm. Right atrium and right ventricular chamber sizes are within normal limits. 3. Valvular structures have normal structure and motion. ECHOCARDIOGRAM REPORT [id number] MICHAEL DISLA 4. Doppler interrogation reveals mild mitral regurgitation, trace tricuspid regurgitation, no other valvular insufficiency or stenosis. Pulmonary systolic pressure is estimated 41 mmHg. 5. No evidence of pericardial effusion or left ventricular thrombus. TRANSINT:[id number] Voice Confirmation ID: [id number] DOCUMENT ID: [id number] LORE LOPEZ MD at 1110 CC: [id number] DICTATION DATE: 12/02/18 1059 ASSEMBLER BRAZER: 12/02/18 1114 ADM IN [place] [address] [place] [address]
[2018-12-03 11:58] VITALS: BP 151/81
--- NOTE | 2018-12-03 13:45 | NUR ---
TR-BAND AIR OUT BAND REMAINS IN PLACE.
--- NOTE | 2018-12-03 13:45 | MORECARE ---
CASE MANAGEMENT DISCHARGE SUMMARY PATIENT: MICHAEL DISLA UNIT: [id number] ADM DATE: 12/01/18 AGE: 83 : 35 SEX: M ROOM/BED: D.2124 AUTHOR: JOSTIN LOVE PHYSICIAN: REFERRING PHYSICIAN: LINDA RAJAN DO DATE OF SERVICE: 12/03/18 Discharge Plan Patient Name: MICHAEL DISLA Facility: [facility]:[place] : 1935 Planned Disposition: Home Anticipated Discharge Date: Discharge Date: Expected LOS: Initial Reviewer: [email or web address] Initial Review Date: 12/01/2018 Generated: 12/03/18 2:44 pm Patient Name: MICHAEL DISLA Page 55596 at 1345 All edits/amendments must be made on the electronic document DICTATION DATE: 12/03/18 134 CONSTRUCTION INSPECTOR: JAYE 12/03/18 1344 RPT#: [id number] DC DATE: STATUS: ADM IN [facility] [address] [place] [address] END OF REPORT
--- NOTE | 2018-12-03 13:51 | MORECARE ---
CASE MANAGEMENT DISCHARGE SUMMARY PATIENT: MICHAEL DISLA UNIT: [id number] ADM DATE: 12/01/18 AGE: 83 : 35 SEX: M ROOM/BED: D.2124 AUTHOR: JOSTIN LOVE PHYSICIAN: REFERRING PHYSICIAN: LINDA RAJAN DO DATE OF SERVICE: 12/03/18 Discharge Plan Patient Name: MICHAEL DISLA [facility] : 1935 Planned Disposition: Home Anticipated Discharge Date: Discharge Date: Expected LOS: Initial Reviewer: [id number] Initial Review Date: 12/01/2018 Generated: 12/03/18 2:51 pm DCPIA - Discharge Planning Initial Assessment Updated by [id number]: Huy De La O on 12/03/18 1:46 pm * Is the patient Alert and Oriented? Yes * How many steps to enter\exit or inside your home? NONE * PCP DR. PARKINSON * Pharmacy [facility] * Preadmission Environment Home with Family * ADLs Independent * Equipment None * Other Equipment NO MEDICAL EQUIPMENT PROVIDER PREFERNCE * List name and contact numbers for known caregivers / representatives who currently or will assist patient after discharge: JEWELS DISLA, SPOUSE, * Verbal permission to speak to the caregivers and representatives has been obtained from the patient. Yes * Community resources currently utilized None * Please name any agencies selected above. NONE * Additional services required to return to the preadmission environment? No * Can the patient safely return to the preadmission environment? Yes * Has this patient been hospitalized within the prior 30 days at any hospital? Yes Last DP export: 12/03/18 12:44 p Patient Name: MICHAEL DISLA Page 38716 at 1351 All edits/amendments must be made on the electronic document DICTATION DATE: 12/03/18 1351 FURNITURE DESIGNER: JAYE 12/03/18 1351 RPT#: [id number] DC DATE: STATUS: ADM IN [facility] [address] [place] [address] END OF REPORT
--- NOTE | 2018-12-03 13:59 | MORECARE ---
CASE MANAGEMENT DISCHARGE SUMMARY PATIENT: MICHAEL DISLA UNIT: [id number] ADM DATE: 12/01/18 AGE: 83 : 35 SEX: M ROOM/BED: D.4295 AUTHOR: IVANDOC PHYSICIAN: REFERRING PHYSICIAN: LINDA RAJAN DO DATE OF SERVICE: 12/03/18 Discharge Plan Patient Name: MICHAEL DISLA Facility: [facility]:[place] : 1935 Planned Disposition: Home Anticipated Discharge Date: Discharge Date: Expected LOS: Initial Reviewer: [email or web address] Initial Review Date: 12/01/2018 Generated: 12/03/18 2:59 pm Comments DCP- Discharge Planning Updated by [id number]: Huy De La O on 12/03/18 12:[address] Patient Name: MICHAEL DISLA Admission Status: ER Accout number: [id number] Admission Date: 12-01-2018 : 1935 Admission Diagnosis: Attending: LINDA RAJAN Current LOS: 2 Anticipated DC Date: Planned Disposition: Home Primary Insurance: MEDICARE A & B Discharge Planning Comments: CM MET WITH PT AND SPOUSE IN ROOM TO DISCUSS DISCHARGE PLANNING AND NEEDS. MICHAEL DISLA provided verbal consent to discuss current and ongoing needs with/in the presence of: JEWELS PATEL. PT REPORTS LIVING AT HOME INDEPENDENTLY WITH HIS SPOUSE. PT HAS NO MEDICAL EQUIPMENT AND NO OUTSIDE SERVICES ASSISTING IN THE HOME. CM DISCUSSED AVAILABILITY OF HOME HEALTH, REHAB SERVICES AND MEDICAL EQUIPMENT. PT DENIES DISCHARGE NEEDS ANTICIPATED, REPORTS HIS WILL PICK HIM UP FOR DISCHARGE HOME. IMPORTANT MESSAGE FROM MEDICARE PROVIDED AND EXPLAINED. PT PLANS TO DISCHARGE HOME WITH SPOUSE, PT HAS NOT ANTICIPATED DISCHARGE NEEDS AT THIS TIME. CM TO FOLLOW AND ASSIST NEEDED. Shank Archer: Huy De La O DCPIA - Discharge Planning Initial Assessment Updated by [email or web address]: Huy De La O on 12/03/18 1:46 pm * Is the patient Alert and Oriented? Yes * How many steps to enter\exit or inside your home? NONE * PCP DR. PARKINSON * [facility] * Preadmission Environment Home with Family * ADLs Independent * Equipment None * Other Equipment NO MEDICAL EQUIPMENT PROVIDER PREFERNCE * List name and contact numbers for known caregivers / representatives who currently or will assist patient after discharge: JEWELS DISLA, SPOUSE, * Verbal permission to speak to the caregivers and representatives has been obtained from the patient. Yes * Community resources currently utilized None * Please name any agencies selected above. NONE * Additional services required to return to the preadmission environment? No * Can the patient safely return to the preadmission environment? Yes * Has this patient been hospitalized within the prior 30 days at any hospital? Yes Coverage Notice Reviewer: [id number] Emily De La O Notice Issued Date-Time: 12/03/2018 11:35 Notice Type: IM Discharge Notice Notice Delivered To: Family Member Relationship to Patient: Spouse Event Marketing Representative Name: JEWELS DISLA Delivery Method: HAND - Hand Delivered Rachele Days: Prior Verbal Notification: Recipient Understood Notice: Yes Recipient Signature: Yes Med Rec Note Co-signed by Attending: Coverage Notice Comment: Last DP export: 12/03/18 12:51 p Patient Name: MICHAEL DISLA Page 52824 at 1359 All edits/amendments must be made on the electronic document DICTATION DATE: 12/03/18 1359 GAS BLENDER: JAYE 12/03/18 1359 RPT#: [id number] DC DATE: STATUS: ADM IN [facility] [address] [place] [address] END OF REPORT
--- NOTE | 2018-12-03 16:47 | MORECARE ---
CASE MANAGEMENT DISCHARGE SUMMARY PATIENT: MICHAEL DISLA UNIT: [id number] ADM DATE: 12/01/18 AGE: 83 : 35 SEX: M ROOM/BED: D.6413 AUTHOR: IVANDOC PHYSICIAN: REFERRING PHYSICIAN: LINDA RAJAN DO DATE OF SERVICE: 12/03/18 Discharge Plan Patient Name: MICHAEL DISLA Facility: [facility]:[place] : 1935 Planned Disposition: Home Anticipated Discharge Date: Discharge Date: Expected LOS: Initial Reviewer: [email or web address] Initial Review Date: 12/01/2018 Generated: 12/03/18 5:46 pm Comments DCP- Discharge Planning Updated by [email or web address]: Huy De La O on 12/03/18 12:[address] Patient Name: MICHAEL DISLA Admission Status: ER Accout number: [id number] Admission Date: 12-01-2018 : 1935 Admission Diagnosis: Attending: LINDA RAJAN Current LOS: 2 Anticipated DC Date: Planned Disposition: Home Primary Insurance: MEDICARE A & B Discharge Planning Comments: CM MET WITH PT AND SPOUSE IN ROOM TO DISCUSS DISCHARGE PLANNING AND NEEDS. MICHAEL DISLA provided verbal consent to discuss current and ongoing needs with/in the presence of: JEWELS PATEL. PT REPORTS LIVING AT HOME INDEPENDENTLY WITH HIS SPOUSE. PT HAS NO MEDICAL EQUIPMENT AND NO OUTSIDE SERVICES ASSISTING IN THE HOME. CM DISCUSSED AVAILABILITY OF HOME HEALTH, REHAB SERVICES AND MEDICAL EQUIPMENT. PT DENIES DISCHARGE NEEDS ANTICIPATED, REPORTS HIS WILL PICK HIM UP FOR DISCHARGE HOME. IMPORTANT MESSAGE FROM MEDICARE PROVIDED AND EXPLAINED. PT PLANS TO DISCHARGE HOME WITH SPOUSE, PT HAS NOT ANTICIPATED DISCHARGE NEEDS AT THIS TIME. CM TO FOLLOW AND ASSIST NEEDED. Hop Strainer: Huy De La O DCPIA - Discharge Planning Initial Assessment Updated by [email or web address]: Huy De La O on 12/03/18 4:45 pm * Is the patient Alert and Oriented? Yes * How many steps to enter\exit or inside your home? NONE * PCP DR. PARKINSON * [facility] * Preadmission Environment Home with Family * ADLs Independent * Equipment Nebulizer * Other Equipment NO MEDICAL EQUIPMENT PROVIDER PREFERNCE * List name and contact numbers for known caregivers / representatives who currently or will assist patient after discharge: JEWELS DISLA, SPOUSE, * Verbal permission to speak to the caregivers and representatives has been obtained from the patient. Yes * Community resources currently utilized None * Please name any agencies selected above. NONE * Additional services required to return to the preadmission environment? No * Can the patient safely return to the preadmission environment? Yes * Has this patient been hospitalized within the prior 30 days at any hospital? Yes Coverage Notice Reviewer: [id number] Emily De La O Notice Issued Date-Time: 12/03/2018 11:35 Notice Type: IM Discharge Notice Notice Delivered To: Family Member Relationship to Patient: Spouse Internet Cafe Manager Name: JEWELS DISLA Delivery Method: HAND - Hand Delivered Rachele Days: Prior Verbal Notification: Recipient Understood Notice: Yes Recipient Signature: Yes Med Rec Note Co-signed by Attending: Coverage Notice Comment: Last DP export: 12/03/18 12:59 p Patient Name: MICHAEL DISLA Page 52899 at 1647 All edits/amendments must be made on the electronic document DICTATION DATE: 12/03/181645 ROCK MASON: JAYE 12/03/181645 RPT#: [id number] DC DATE: STATUS: ADM IN [facility] [address] [place] [address] END OF REPORT
--- NOTE | 2018-12-03 16:56 | MORECARE ---
CASE MANAGEMENT DISCHARGE SUMMARY PATIENT: MICHAEL DISLA UNIT: [id number] ADM DATE: 12/01/18 AGE: 83 : 35 SEX: M ROOM/BED: D.3684 AUTHOR: JOSTIN LOVE PHYSICIAN: REFERRING PHYSICIAN: LINDA RAJAN DO DATE OF SERVICE: 12/03/18 Discharge Plan Patient Name: MICHAEL DISLA Facility: [facility]:[place] : 1935 Planned Disposition: Home Anticipated Discharge Date: Discharge Date: Expected LOS: Initial Reviewer: [email or web address] Initial Review Date: 12/01/2018 Generated: 12/03/18 5:56 pm Comments DCP- Discharge Planning Updated by [id number]: Huy De La O on 12/03/18 3:[address] Patient Name: MICHAEL DISLA Encounter No: [id number] : 1935 Primary Insurance: MEDICARE A & B Anticipated DC Date: Planned Disposition: Home DCP follow-up note: CM SPOKE TO DR. MONTANO WHO INFORMED CM THAT PT WILL NEED A NEBULIZER FOR HOME USE. CM SPOKE TO PT IN ROOM AND DISCUSSED NEED FOR NEBULIZER. PT REPORTS HIS BOUGHT HIM ONE PRIOR TO HOSPITALIZATION AND PT WAS USING ALBUTEROL UPDRAFTS THAT DID NOT HELP MUCH. PT DENIES NEED OF ANOTHER NEBULIZER REPORTING THE ONE HE HAS WORKS WELL. PT PLANS TO DISCHARGE HOME WITH SPOUSE, PT HAS NEBUILZER AND HAS NO FURTHER ANTICIPATED DISCHARGE NEEDS AT THIS TIME. CM TO FOLLOW AND ASSIST NEEDED. Flotation Tender: Huy De La O DCP- Discharge Planning Updated by [email or web address]: Huy De La O on 12/03/18 12:[address] Patient Name: MICHAEL DISLA Admission Status: ER Accout number: [id number] Admission Date: 12-01-2018 : 1935 Admission Diagnosis: Attending: LINDA RAJAN Current LOS: 2 Anticipated DC Date: Planned Disposition: Home Primary Insurance: MEDICARE A & B Discharge Planning Comments: CM MET WITH PT AND SPOUSE IN ROOM TO DISCUSS DISCHARGE PLANNING AND NEEDS. MICHAEL DISLA provided verbal consent to discuss current and ongoing needs with/in the presence of: JEWELS PATEL. PT REPORTS LIVING AT HOME INDEPENDENTLY WITH HIS SPOUSE. PT HAS NO MEDICAL EQUIPMENT AND NO OUTSIDE SERVICES ASSISTING IN THE HOME. CM DISCUSSED AVAILABILITY OF HOME HEALTH, REHAB SERVICES AND MEDICAL EQUIPMENT. PT DENIES DISCHARGE NEEDS ANTICIPATED, REPORTS HIS WILL PICK HIM UP FOR DISCHARGE HOME. IMPORTANT MESSAGE FROM MEDICARE PROVIDED AND EXPLAINED. PT PLANS TO DISCHARGE HOME WITH SPOUSE, PT HAS NOT ANTICIPATED DISCHARGE NEEDS AT THIS TIME. CM TO FOLLOW AND ASSIST NEEDED. Flotation Tender: Huy De La O DCPIA - Discharge Planning Initial Assessment Updated by [email or web address]: Huy De La O on 12/03/18 4:45 pm * Is the patient Alert and Oriented? Yes * How many steps to enter\exit or inside your home? NONE * PCP DR. PARKINSON * [facility] * Preadmission Environment Home with Family * ADLs Independent * Equipment Nebulizer * Other Equipment NO MEDICAL EQUIPMENT PROVIDER PREFERNCE * List name and contact numbers for known caregivers / representatives who currently or will assist patient after discharge: JEWELS DISLA, SPOUSE, * Verbal permission to speak to the caregivers and representatives has been obtained from the patient. Yes * Community resources currently utilized None * Please name any agencies selected above. NONE * Additional services required to return to the preadmission environment? No * Can the patient safely return to the preadmission environment? Yes * Has this patient been hospitalized within the prior 30 days at any hospital? Yes Coverage Notice Reviewer: [id number] - Huy De La O Notice Issued Date-Time: 12/03/2018 11:35 Notice Type: IM Discharge Notice Notice Delivered To: Family Member Relationship to Patient: Spouse Residence Counselor Name: JEWELS DISLA Delivery Method: HAND - Hand Delivered Rachele Days: Prior Verbal Notification: Recipient Understood Notice: Yes Recipient Signature: Yes Med Rec Note Co-signed by Attending: Coverage Notice Comment: Last DP export: 12/03/18 3:47 p Patient Name: MICHAEL DISLA Page [phone] at 1659 All edits/amendments must be made on the electronic document DICTATION DATE: 12/03/181654 CERTIFIED CYTOTECHNOLOGIST: JAYE 12/03/181654 RPT#: [id number] UT DATE: STATUS: ADM IN [facility] [address] [place] [address] END OF REPORT
--- NOTE | 2018-12-03 17:33 | NUR ---
WITHOUT CHANGES OR DISTRESS NOTED AT TYHIS TIME. DENIES NEEDS
--- NOTE | 2018-12-03 19:20 | NUR ---
PT IS UP AND AMBLITORY AROUND UNIT FLOOR DENIES NEEDS AT THIS TIME NO BLEEDING FROM RT WRIST PULSE IS INTACT
[2018-12-03 20:00] VITALS: BP 129/65
--- NOTE | 2018-12-04 02:15 | NUR ---
I have reviewed this patient and I concur with the Shift Assessment completed by the Licensed Practical Nurse today this shift.
[2018-12-04 04:00] VITALS: BP 137/81
[2018-12-04 06:27] LABS: BASOPHILS 0 % (0-2); EOSINOPHILS 0 % (0-7); HEMATOCRIT 36.4 % (42.0-54.0); HEMOGLOBIN 12.3 g/dL (13.5-17.5); IMMATURE GRANULOCYTES 0.4 % (0-5); LYMPHOCYTES 12.8 % (15-50); MCH 31.1 pg (26.0-34.0); MCHC 33.8 g/dL (31.0-37.0); MCV 91.9 fL (80.0-100.0); MEAN PLATELET VOLUME 10.6 fL (7.4-10.4); MONOCYTES 10.2 % (2-11); NEUTROPHILS 76.6 % (40-80); PLATELET COUNT 255 10x3/uL (130-400); RBC 3.96 10x6/uL (4.20-6.10); RDW 14.1 % (11.5-14.5)
[2018-12-04 06:44] LABS: WBC 13.9 10x3/uL (4.8-10.8)
[2018-12-04 06:45] LABS: ANION GAP 11.1 mmol/L (8-16); CALCIUM 8.4 mg/dL (8.5-10.1); CARBON DIOXIDE 30.2 mmol/L (21.0-32.0); CREATININE - SERUM 1.2 mg/dL (0.6-1.3); POTASSIUM - SERUM 3.3 mmol/L (3.5-5.1)
--- NOTE | 2018-12-04 07:50 | NUR ---
ASSESSMENT DONE. DENIES NEEDS
[2018-12-04 08:47] VITALS: BP 178/102
[2018-12-04 08:53] VITALS: BP 178/102
--- NOTE | 2018-12-04 10:54 | NUR ---
I have reviewed this patient and I concur with the Shift Assessment completed by the Licensed Practical Nurse today this shift.
[2018-12-04] MEDS ORDERED: COREG12.5 MG PO (12:25)
[2018-12-04] MEDS ORDERED: PLAVIX75 MG PO (12:25)
[2018-12-04] MEDS ORDERED: LOPRESSOR25 MG PO (12:25)
[2018-12-04] MEDS ORDERED: LASIX20 MG PO (12:25)
[2018-12-04] MEDS ORDERED: KLOR-CON 1010 MEQ PO (12:26)
[2018-12-04 12:52] VITALS: BP 151/90
[2018-12-04] MEDS ORDERED: ASPIRIN81 MG PO (13:00)
[2018-12-04] MEDS ORDERED: IPRAT-ALBUT 0.5-3 ML UPD (13:08)
--- NOTE | 2018-12-04 13:31 | NUR ---
DC GIVEN TO PT AND
--- NOTE | 2018-12-04 13:46 | NUR ---
DC HOME PER PERSONAL CAR
[2018-12-05 07:14] LABS: IMMUNOGLOBULIN A 441 mg/dL (61-437); IMMUNOGLOBULIN G 796 mg/dL (700-1600)
--- NOTE | 2018-12-05 09:02 | MORECARE ---
CASE MANAGEMENT DISCHARGE SUMMARY PATIENT: MICHAEL DISLA UNIT: [id number] ADM DATE: 12/01/18 AGE: 83 : 35 SEX: M ROOM/BED: D.5604 AUTHOR: JOSTIN LOVE PHYSICIAN: REFERRING PHYSICIAN: LINDA RAJAN DO DATE OF SERVICE: 12/05/18 Discharge Plan Patient Name: MICHAEL DISLA Facility: [facility]:[place] : 1935 Planned Disposition: Home Anticipated Discharge Date: 12/05/18 Discharge Date: 12/04/2018 Expected LOS: 4 Initial Reviewer: [id number] Initial Review Date: 12/01/2018 Generated: 12/05/18 10:01 am Comments DCP- Discharge Planning Updated by [id number]: Huy De La O on 12/03/18 3:[address] Patient Name: MICHAEL DISLA Encounter No: [id number] : 1935 Primary Insurance: MEDICARE A & B Anticipated DC Date: Planned Disposition: Home DCP follow-up note: CM SPOKE TO DR. MONTANO WHO INFORMED CM THAT PT WILL NEED A NEBULIZER FOR HOME USE. CM SPOKE TO PT IN ROOM AND DISCUSSED NEED FOR NEBULIZER. PT REPORTS HIS BOUGHT HIM ONE PRIOR TO HOSPITALIZATION AND PT WAS USING ALBUTEROL UPDRAFTS THAT DID NOT HELP MUCH. PT DENIES NEED OF ANOTHER NEBULIZER REPORTING THE ONE HE HAS WORKS WELL. PT PLANS TO DISCHARGE HOME WITH SPOUSE, PT HAS NEBUILZER AND HAS NO FURTHER ANTICIPATED DISCHARGE NEEDS AT THIS TIME. CM TO FOLLOW AND ASSIST NEEDED. Chimney Repairer: Huy De La O DCP- Discharge Planning Updated by [email or web address]: Huy De La O on 12/03/18 12:[address] Patient Name: MICHAEL DISLA Admission Status: ER Accout number: [id number] Admission Date: 12-01-2018 : 1935 Admission Diagnosis: Attending: LINDA RAJAN Current LOS: 2 Anticipated DC Date: Planned Disposition: Home Primary Insurance: MEDICARE A & B Discharge Planning Comments: CM MET WITH PT AND SPOUSE IN ROOM TO DISCUSS DISCHARGE PLANNING AND NEEDS. MICHAEL DISLA provided verbal consent to discuss current and ongoing needs with/in the presence of: JEWELS PATEL. PT REPORTS LIVING AT HOME INDEPENDENTLY WITH HIS SPOUSE. PT HAS NO MEDICAL EQUIPMENT AND NO OUTSIDE SERVICES ASSISTING IN THE HOME. CM DISCUSSED AVAILABILITY OF HOME HEALTH, REHAB SERVICES AND MEDICAL EQUIPMENT. PT DENIES DISCHARGE NEEDS ANTICIPATED, REPORTS HIS WILL PICK HIM UP FOR DISCHARGE HOME. IMPORTANT MESSAGE FROM MEDICARE PROVIDED AND EXPLAINED. PT PLANS TO DISCHARGE HOME WITH SPOUSE, PT HAS NOT ANTICIPATED DISCHARGE NEEDS AT THIS TIME. CM TO FOLLOW AND ASSIST NEEDED. Chimney Repairer: Huy De La O DCPIA - Discharge Planning Initial Assessment Updated by [email or web address]: Huy De La O on 12/03/18 4:45 pm * Is the patient Alert and Oriented? Yes * How many steps to enter\exit or inside your home? NONE * PCP DR. PARKINSON * [facility] * Preadmission Environment Home with Family * ADLs Independent * Equipment Nebulizer * Other Equipment NO MEDICAL EQUIPMENT PROVIDER PREFERNCE * List name and contact numbers for known caregivers / representatives who currently or will assist patient after discharge: JEWELS DISLA, SPOUSE, * Verbal permission to speak to the caregivers and representatives has been obtained from the patient. Yes * Community resources currently utilized None * Please name any agencies selected above. NONE * Additional services required to return to the preadmission environment? No * Can the patient safely return to the preadmission environment? Yes * Has this patient been hospitalized within the prior 30 days at any hospital? Yes Coverage Notice Reviewer: [id number] - Huy De La O Notice Issued Date-Time: 12/03/2018 11:35 Notice Type: IM Discharge Notice Notice Delivered To: Family Member Relationship to Patient: Spouse Application Support Intern Name: JEWELS DISLA Delivery Method: HAND - Hand Delivered Rachele Days: Prior Verbal Notification: Recipient Understood Notice: Yes Recipient Signature: Yes Med Rec Note Co-signed by Attending: Coverage Notice Comment: Last DP export: 12/03/18 3:56 p Patient Name: MICHAEL DISLA Page 77154 at 0902 All edits/amendments must be made on the electronic document DICTATION DATE: 12/05/18900 AWNING ERECTOR: JAYE 12/05/18900 RPT#: [id number] DC DATE:12/04/18 STATUS: DIS IN [place] [id number] [facility] [place] [address] END OF REPORT
[2018-12-05 09:10] LABS: ANA REFLEX - DIRECT Negative (Negative)
[2018-12-06 08:11] LABS: IMMUNOGLOBULIN E 5 IU/mL (6-495)
--- NOTE | 2018-12-06 10:47 | OP ---
PATIENT NAME: MICHAEL DISLA MEDICAL RECORD: [id number] :35 LOCATION:D.M2 D.2124 ADMISSION DATE:12/01/18 SURGEON: LORE MORLEY MD DATE OF OPERATION: 12/03/2018 PROCEDURES: 1. PTCA stent LAD. 2. PTCA stent left main. 3. Intravascular ultrasound of the LAD. 4. Intravascular ultrasound of the left main. 5. Left heart catheterization. 6. Selective coronary angiography. 7. Left ventriculogram. INDICATION: Angina, coronary artery disease, abnormal nuclear stress test. DESCRIPTION OF PROCEDURE IN DETAIL: After informed consent was obtained and after detailed description of risks, benefits as well as alternative therapies, the patient elected to proceed with angiogram and angioplasty. The right radial area was prepped and draped in normal sterile fashion. Right radial artery was cannulated via modified Seldinger technique with the placement of 6-Yakut sheath. All catheters exchanged through this sheath. FINDINGS: Left ventriculogram was performed in a standard 30-degree HUANG view, reveals good cardiac wall motion, ejection fraction estimated 60%. SELECTIVE CORONARY ANGIOGRAPHY: 1. Left main has 81% stenosis confirmed by intravascular ultrasound. This extends into the LAD. The LAD has greater than 80% stenosis proximally as well. 2. The left circumflex has mild irregularities, but no flow-limiting stenosis. 3. Right coronary is large, dominant, previously placed stent that is widely patent. There is moderate diffuse disease distally, but no discrete flow-limiting stenosis. 4. PTCA stent of the left main and LAD. The LAD was addressed with a 4.0 x 15 mm Cobra and the LAD with a 4.0 x 8 mm Cobra. Result was 0% residual stenosis. OVERALL IMPRESSION: Successful percutaneous transluminal coronary angioplasty stent of the left anterior descending and left main going from greater than 80% initial stenosis to 0% residual. TRANSINT:[id number] Voice Confirmation ID: [id number] DOCUMENT ID: [id number] LORE MORLEY MD at 1047 CC: [id number] DICTATION DATE: 12/03/18 1014 VOCATIONAL TECHNICAL EDUCATION DIRECTOR: 12/03/18 1228 DIS IN 12/04/18 [place] [address]
[2018-12-07 22:06] LABS: IMMUNOGLOBULIN E 5 IU/mL (6-495)
[2018-12-10 12:08] LABS: IGG SUBCLASS 1 377 mg/dL (248-810); IGG SUBCLASS 2 210 mg/dL (130-555); IGG SUBCLASS 3 48 mg/dL (15-102); IGG SUBCLASS 4 30 mg/dL (2-96); IGGS - IGG SERUM 743 mg/dL (700-1600)
--- NOTE | 2018-12-18 14:32 | OP ---
PATIENT NAME: MICHAEL DISLA MEDICAL RECORD: [id number] :35 LOCATION:D.M2 D.2124 ADMISSION DATE:12/01/18 SURGEON: LORE MORLEY MD DATE OF OPERATION: 12/03/2018 ADDENDUM: First stent went into the LAD. It is 4.0 x 8 mm Cobra stent went into the left main coronary artery. TRANSINT:[id number] Voice Confirmation ID: [id number] DOCUMENT ID: [id number] LORE MORLEY MD at 1432 CC: [id number] DICTATION DATE: 12/16/18 1538 INSECTICIDE MAKER: 12/16/18 1850 DIS IN 12/04/18 [facility] [address] [place] [address]
== END 2018-12-04 13:46 | disposition home or self-care (01) | DRG 248 ==
LOC: D.ER 23:54 → D.M2 12-01 00:45
PROVIDERS: Family Medicine; Internal Medicine Interventional Cardiology; Internal Medicine Nephrology; Internal Medicine Pulmonary Disease; ADMIT Family Medicine; ATTEND Family Medicine
PROC: B2111ZZ Fluoroscopy of Multiple Coronary Arteries using Low Osmolar Contrast (ICD-10-PCS; 2018-12-03)
PROC: B2151ZZ Fluoroscopy of Left Heart using Low Osmolar Contrast (ICD-10-PCS; 2018-12-03)
PROC: B241ZZ3 Ultrasonography of Multiple Coronary Arteries, Intravascular (ICD-10-PCS; 2018-12-03)
PROC: 02713EZ Dilation of Coronary Artery, Two Arteries with Two Intraluminal Devices, Percutaneous Approach (ICD-10-PCS; principal; 2018-12-03 09:08)
PROC: 4A023N7 Measurement of Cardiac Sampling and Pressure, Left Heart, Percutaneous Approach (ICD-10-PCS; 2018-12-03 09:08)
DX: I25.119 Atherosclerotic heart disease of native coronary artery with unspecified angina pectoris (principal); J96.01 Acute respiratory failure with hypoxia; I50.31 Acute diastolic (congestive) heart failure; I13.0 Hypertensive heart and chronic kidney disease with heart failure and stage 1 through stage 4 chronic kidney disease, or unspecified chronic kidney disease; N17.9 Acute kidney failure, unspecified; J98.11 Atelectasis; R94.30 Abnormal result of cardiovascular function study, unspecified; I08.1 Rheumatic disorders of both mitral and tricuspid valves; I27.20 Pulmonary hypertension, unspecified; J30.9 Allergic rhinitis, unspecified; E78.00 Pure hypercholesterolemia, unspecified; D64.9 Anemia, unspecified; N18.9 Chronic kidney disease, unspecified; E78.5 Hyperlipidemia, unspecified; K21.9 Gastro-esophageal reflux disease without esophagitis

== ENCOUNTER → 2019-03-12 13:39 | Outpatient (CLI) | payer MEDICARE, OTHER ==
[2018-12-02 13:21] VITALS: BMI 29.4
--- NOTE | ~2019-03-12 | EC ---
PATIENT:MICHAEL DISLA DATE OF SERVICE: 03/12/19 SEX: M MEDICAL RECORD: [id number] DATE OF : 35 LOCATION:[facility] AGE OF PATIENT: 83 ADMISSION DATE: 03/12/19 REFERRING PHYSICIAN: INTERPRETING PHYSICIAN: LORE LOPEZ MD ECHOCARDIOGRAM REPORT ECHO CHARGES 4 ECHO COMPLETE Date: 03/12/19 CLINICAL DIAGNOSIS: CAD HX MR/TR/HTN ECHOCARDIOGRAPHIC MEASUREMENTS (adult normal given) AC root (d.<3.7cm) 3.7 cm LV Septum d (<1.2 cm> 1.4 cm Valve Excursion 1.8 cm LV Septum (systole) 1.5 cm Left Atria (s.<4.0cm> 4.0 cm LVPW d(<1.2cm) 1.4 cm RV (d.<2.3cm) 4.1 cm LVPW (sytole) 1.6 cm LV diastole(<5.6CM) 5.1 cm MV E-F(>70mm/sec) cm LV systole 3.5 cm LVOT Diameter 2.1 cm MV exc.(>10mm) 1.7 cm Est.ejection fraction (50-75%) % DOPPLER: LVIT cm/sec A 97.0 cm/sec E 55.0 cm/sec LA cm/sec RVSP 39 mmHg LVOT 97 cm/sec AOP1/2T m/s Asc. Ao 113 cm/sec RVOT 70 cm/sec RA cm/sec PA 136 cm/sec AV Gradient Peak 5.07 mmHg AV Mean 2.54 mmHg AV Area 3.2 cm MV Gradient Peak 5.1 mmHg MV Mean 1.76 mmHg MV Area cm COMMENTS: Automobile Detailer: Memo B[employer]ES Piping Design Specialist: 1 Dr. Lopez TAPE# PACS Pericardial Effusion N DATE OF SERVICE: 03/12/2019 FINDINGS: 1. Left ventricular chamber size is within normal limits. Left ventricular systolic function is normal. Overall ejection fraction estimated at 55% to 60%. 2. Left atrium is enlarged at 4.0 cm. Right atrium and right ventricular chamber sizes are as well mildly dilated. 3. Valvular structures have normal structure and motion. 4. Doppler interrogation reveals trace aortic insufficiency, mild mitral regurgitation, mild tricuspid regurgitation, no other valvular insufficiency or ECHOCARDIOGRAM REPORT [id number] NIGHAT,MICHAEL H stenosis. 5. No evidence of pericardial effusion or left ventricular thrombus. TRANSINT:[id number] Voice Confirmation ID: [id number] DOCUMENT ID: [id number] LORE LOPEZ MD CC: [id number] DICTATION DATE: 03/12/19 161 PROBATION AND PATROL AGENT: 03/12/19 2252 [facility] [address] [place] [address]
[~2019-03-12 13:39] MED LIST changes: +ASPIRIN81 MG PO; +COREG12.5 MG PO; +IPRAT-ALBUT 0.5-3 ML UPD; +KLOR-CON 1010 MEQ PO; +LASIX20 MG PO; +LOPRESSOR25 MG PO; +PLAVIX75 MG PO
== END | disposition home or self-care (01) ==
LOC: D.HCCECHO 13:39
PROVIDERS: ATTEND Internal Medicine Interventional Cardiology
DX: I25.10 Atherosclerotic heart disease of native coronary artery without angina pectoris (principal)